=== PATIENT | female | born 1990 | race Caucasian/White ===

== ENCOUNTER 2020-08-10 14:54 | Inpatient (IN) | payer BC ==
[2020-08-10] MEDS ORDERED: DINOPROSTONE 10 MG INSERT.ER VAGINAL ONE (15:15)
[2020-08-10] MEDS ORDERED: LACTATED RINGERS 1,000 ML IV SCH (15:15)
[2020-08-10 15:41] LABS: Appearance,Urine Cloudy (Clear); Bilirubin,Urine Negative (Negative); Blood,Urine Negative (Negative); Color,Urine Colorless; Glucose,Urine (UA) Negative (Negative); Ketones,Urine Negative (Negative); Leukocyte Esterase,Urine Small (Negative); Nitrite,Urine Negative (Negative); PH, Urine 6.5 (5.0-8.0); Protein,Urine Negative (Negative); RBC,Urine <1 /hpf (0-5); Specific Gravity,Urine 1.003 (1.001-1.035); Squamous Epithelial Cell,Urine 1 /hpf (0-4); Urobilinogen,Urine <2.0 mg/dL (<2.0); WBC,Urine 2 /hpf (0-5)
[2020-08-10 15:44] LABS: Creatinine,Urine Random 25.5 mg/dL; Creatinine,Urine Random 25.7 mg/dL; Protein/Creatinine Ratio,Urine 1.098
[2020-08-10 15:52] LABS: Basophils # (A) 0.1 k/uL (0-0.2); Basophils % (A) 1 %; Eosinophils % (A) 0 %; HCT 35.4 % (34.0-46.0); HGB 12.4 gm/dL (11.4-16.0); Lymphocytes # (A) 1.5 k/uL (1.0-4.8); Lymphocytes % (A) 18 %; MCH 29.8 pg (25.0-35.0); MCV 85.1 fL (80.0-100.0); Mean Platelet Volume 7.4; Monocytes # (A) 0.5 k/uL (0-1.0); Monocytes % (A) 6 %; Neutrophils # (A) 6.1 k/uL (1.3-7.7); Neutrophils % (A) 74 %; Platelet Count 238 k/uL (150-450); RBC 4.15 m/uL (3.80-5.40); RDW 15.6 % (11.5-15.5); WBC 8.3 k/uL (3.8-10.6)
[2020-08-10 16:50] LABS: ALT 12 U/L (4-34); AST 18 U/L (14-36); African American GFR (CKD) >90 (>60 ml/min/1.73 sqM); Blood Urea Nitrogen 6 mg/dL (7-17); LDH 327 U/L (313-618); Non-African American GFR(CKD) >90 (>60 ml/min/1.73 sqM); Uric Acid 5.8 mg/dL (3.7-7.4)
[2020-08-10] MEDS ORDERED: hydrALAZINE HCL 20 MG/ML 1 ML VIAL IVP STA (18:25)
[2020-08-10] MEDS: LABETALOL 100 MG TAB PO SCH (20:53)
[2020-08-10] MEDS: BUTORPHANOL 1 MG/ML 1 ML VIAL IV PRN (23:46)
[2020-08-11] MEDS: BUTORPHANOL 1 MG/ML 1 ML VIAL IV PRN (03:49)
[2020-08-11] MEDS ORDERED: TERBUTALINE 1 MG/ML VIAL SQ PRN (05:19)
[2020-08-11] MEDS ORDERED: OXYTOCIN 10 UNIT/ML 1 ML VIAL IM PRN (05:19)
[2020-08-11] MEDS ORDERED: AMPICILLIN 2,000 MG in SODIUM CHLORIDE 0.9% 100 ML IVPB STA (05:19)
[2020-08-11] MEDS ORDERED: METHYLERGONOVINE 0.2 MG/ML 1 ML AMP IM PRN (05:19)
[2020-08-11] MEDS ORDERED: LIDOCAINE 0.5% (PF) 5 MG/ML (50 ML SDV) SQ PRN (05:19)
[2020-08-11] MEDS ORDERED: CARBOPROST TROMETHAMINE 250 MCG/ML 1 ML AMP IM PRN (05:19)
[2020-08-11] MEDS: OXYTOCIN 30 UNITS/500 ML NS 30 UNIT in SALINE 1 500ML.BAG IV SCH (05:43)
[2020-08-11] MEDS: LABETALOL 100 MG TAB PO SCH ×2 (08:22→20:20)
[2020-08-11] MEDS: LACTATED RINGERS 1,000 ML IV SCH ×3 (08:22→19:24)
[2020-08-11] MEDS ORDERED: fentaNYL (PF) 50 MCG/ML 5 ML AMP ONE (09:40)
[2020-08-11] MEDS ORDERED: SODIUM CHLORIDE 0.9% 100 ML BAG ONE (09:40)
[2020-08-11] MEDS ORDERED: ROPIVACAINE 5MG/ML 20ML VIAL ONE (09:40)
[2020-08-11] MEDS: AMPICILLIN 1,000 MG in SODIUM CHLORIDE 0.9% 50 ML IVPB SCH ×3 (09:49→19:24)
[2020-08-11] MEDS ORDERED: ROPIVACAINE 100 MG, fentaNYL (PF) 200 MCG in SODIUM CHLORIDE 0.9% 76 ML EPIDURAL ONE (09:58)
[2020-08-11] MEDS ORDERED: CITRIC ACID-SODIUM CITRATE 15 ML CUP PO ONE (16:12)
[2020-08-11] MEDS ORDERED: ceFAZolin 3 GM in SODIUM CHLORIDE 0.9% 100 ML IVPB ONE (16:12)
[2020-08-11] MEDS ORDERED: MORPHINE SULFATE (PF) 0.3 MG/0.3 ML SYR ONE (16:20)
[2020-08-11] MEDS ORDERED: fentaNYL (PF) 50 MCG/ML 2 ML AMP ONE (16:20)
[2020-08-11] MEDS ORDERED: CARBOPROST TROMETHAMINE 250 MCG/ML 1 ML AMP IM ONE (16:20)
[2020-08-11] MEDS ORDERED: OXYTOCIN 10 UNIT/ML 1 ML VIAL ONE (16:20)
[2020-08-11] MEDS ORDERED: ACETAMINOPHEN TAB 325 MG TAB PO PRN (17:31)
[2020-08-11] MEDS ORDERED: ZOLPIDEM 5 MG TAB PO PRN (17:31)
[2020-08-11] MEDS ORDERED: SIMETHICONE 80 MG CHEWABLE PO PRN (17:31)
[2020-08-11] MEDS ORDERED: METOCLOPRAMIDE 5 MG/ML 2 ML VIAL IVP PRN (17:31)
[2020-08-11] MEDS ORDERED: HYDROcodone/APAP 5-325MG 1 EACH TAB PO PRN (17:31)
[2020-08-11] MEDS ORDERED: diphenhydrAMINE 50 MG CAP PO PRN (17:31)
[2020-08-11] MEDS ORDERED: diphenhydrAMINE 50 MG/ML 1 ML VIAL IVP PRN ×2 (17:31)
[2020-08-11] MEDS ORDERED: diphenhydrAMINE 25 MG CAP PO PRN (17:31)
[2020-08-11] MEDS ORDERED: NALOXONE 0.4 MG/ML 1 ML VIAL IV PRN (17:31)
[2020-08-11] MEDS ORDERED: ONDANSETRON 4 MG/2 ML VIAL IVP PRN (17:31)
--- NOTE | 2020-08-11 17:35 | P.HPOB ---
History of Present Illness H&P Date: 08/10/20 Chief Complaint: IUP at 38 and 1/sevenths weeks, gestational hypertension this is a 30-year-old at 38 and one sevenths weeks that presents to labor and delivery from the office with noted elevated pressures. Patient had noted blood pressures 144/98 recheck being similar. Patient was sent to OB triage for evaluation. Blood pressures remained elevated. Patient denies headache or abdominal pain. Patient has been receiving routine care which has been essentially uncomplicated. Patient does note good movement and denies loss of fluid or vaginal bl eeding. On bloodwork patient has a blood type of AB+, rubella immune, hepatitis B surface antigen negative, HIV negative, RPR nonreactive, GBS positive. Review of Systems Constitutional: Denies chills, Denies fatigue, Denies fever Ears, nose, mouth and throat: Denies headache Cardiovascular: Reports leg edema Respiratory: Denies dyspnea Gastrointestinal: Denies constipation, Denies diarrhea, Denies nausea, Denies vomiting Genitourinary: Reports Past Medical History Past Medical History: No Reported History History of Any Multi-Drug Resistant Organisms: None Reported Past Surgical History: No Surgical Hx Reported Past Anesthesia/Blood Transfusion Reactions: No Reported Reaction Past Psychological History: Anxiety Smoking Status: Former smoker Past Alcohol Use History: None Reported Past Drug Use History: None Reported - Past Family History Father Additional Family Medical History / Comment(s): bipass surgery Medications and Allergies Home Medications Medication Instructions Recorded Confirmed Type Pnv No.95/Ferrous Fum/Folic AC 1 each PO DAILY 08/10/20 08/10/20 History [ Multivitamin Tablet] metFORMIN HCL [metFORMIN HCL ER] 750 mg PO DAILY 08/10/20 08/10/20 History Allergies Allergy/AdvReac Type Severity Reaction Status Date / Time No Known Allergies Allergy Verified 08/10/20 15:15 Exam Osteopathic Statement: *. No significant issues noted on an osteopathic structural exam other than those noted in the History and Physical/Consult. 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 Results Result Diagrams: 08/10/20 15:43 08/10/20 15:43 Abnormal Lab Results - Last 24 Hours (Table) 08/10/20 08/10/20 08/10/20 Range/Units 15:33 15:33 15:43 RDW 15.6 H (11.5-15.5) % BUN (7-17) mg/dL Creatinine (0.52-1.04) mg/dL Urine Appearance Cloudy H (Clear) Ur Leukocyte Esterase Small H (Negative) U Random Total Protein 29 H (<12) mg/dL 08/10/20 Range/Units 15:43 RDW (11.5-15.5) % BUN 6 L (7-17) mg/dL Creatinine 0.47 L (0.52-1.04) mg/dL Urine Appearance (Clear) Ur Leukocyte Esterase (Negative) U Random Total Protein (<12) mg/dL Assessment and Plan (1) 38 weeks gestation of Current Visit: Yes Status: Acute Code(s): Z3A.38 - 38 WEEKS GESTATION OF SNOMED Code(s): 63043344 (2) Gestational HTN Current Visit: Yes Status: Acute Code(s): O13.9 - GESTATIONAL HTN W/O SIGNIFICANT PROTEINURIA, UNSP TRIMESTER SNOMED Code(s): 099330902 (3) GBS bacteriuria Current Visit: Yes Status: Acute Code(s): R82.71 - BACTERIURIA SNOMED Code(s): 59373735 Plan: this 30-year-old at 38 and one sevenths weeks with diagnosis of gestational hypertension. Patient is admitted to labor and delivery for Cervidil induction of labor. Patient is offered Stadol and epidural if appropriate. Patient states understanding we'll monitor blood pressures and preeclampsia labs.
--- NOTE | 2020-08-11 17:43 | P.OP ---
Date of Procedure: 08/11/20 Preoperative Diagnosis: IUP at 38 and 1/sevenths weeks, preeclampsia, arrest of descent Postoperative Diagnosis: Same plus occiput posterior presentation Procedure(s) Performed: Primary low transverse section Anesthesia: epidural Surgeon: Rubina To Compressor Station Engineer Chief #1: Claudia Hollingsworth Estimated Blood Loss (ml): 700 IV fluids (ml): 1,000 Urine output (ml): 200 (Concentrated/blood-tinged) Pathology: other (Placenta) Condition: stable Disposition: observation Indications for Procedure: This 30-year-old 1 para 0 at 38 and one sevenths weeks presented to labor and delivery for Cervidil induction of labor for persistently elevated blood pressures. Patient was begun on labetalol 100 mg twice daily secondary to these blood pressures. Patient made good progress the evening, Pitocin was begu n and amniotomy was performed. Patient became uncomfortable requesting epidural, soon afterwards patient was noted to be complete and began pushing. Patient had been pushing about 2 hours with no further descent of the head and increasing It. head was noted to be +1 with It decision at that time was made for primary secondary to arrest of descent. Patient was counseled on the decision for she stated understanding and patient was taken back to the operative suite. Operative Findings: Viable female delivered at 1645, weight of 6 lbs. 11 oz. with Apgars of 7 and 9 at one and 5 minutes respectively. Patient was noted to be in persistent occiput posterior presentation at delivery, normal uterus tubes and ovaries were appreciated. Description of Procedure: Patient was taken back to the operating suite where epidural anesthesia was found be adequate. She was then prepped and draped in normal sterile fashion in the dorsal supine position. A Pfannenstiel skin incision was then made with the scalpel and carried through the underlying layer fascia. Fascia incised in midline and extended laterally. The superior aspect of the fascial incision was then grasped neville clamps, elevated and underlying rectus muscles dissected off sharply. Attention was then turned the inferior aspect of the fascial incision which was grasped neville clamps, elevated and underlying rectus muscles dissected off sharply. The rectus muscles were in the midline the peritoneum was identified and entered. The Maribeth ring retractor was then placed into the incision. The bladder blade was then inserted. Vesicouterine peritoneum was identified and the bladder flap was created using sharp and blunt dissection. Hysterotomy incision was then made with the scalpel clear fluid was obtained. The 's head was noted to be deep in the pelvis and with the assist of the RN pushing up for the infant was delivered in an occiput posterior presentation the umbo cord was doubly clamped and cut and the infant was handed off to awaiting RN. After stimulation a spontaneous cry was noted. The placenta was then delivered spontaneously intact with three-vessel cord being noted. The uterine incision was then closed with 0 Vicryl in a running locked fashion. A second layer of suture was used to obtain hemostasis. Bleeding was noted on the midportion of the uterus therefore 2 [id number] sutures were used to obtain hemostasis. The uterus was then delivered back to the abdomen and the ring retractor was removed. Hysterotomy incision was inspected a small amount of bleeding was noted therefore proceed was placed along the hysterotomy incision states was appreciated after placement. The gutters were cleared of all clots and debris. The peritoneum was loosely reapproximated and the fascia was then closed with 0 Vicryl in a running fashion from one lateral edge the midline and the other lateral edge the midline. The subcutaneous tissue was then irrigated and found to be hemostatic. 3-0 Vicryl was used to close the subcutaneous tissue in a running fashion. Skin was then closed with 4-0 Vicryl in a subcuticular fashion. Steri-Strips and sterile dressings were applied All counts were noted to be correct 2, patient and tolerated delivery well and are resting comfortably.
[2020-08-11] MEDS ORDERED: OXYTOCIN 20 UNITS/1000 ML NS 1,000 ML IV SCH (17:45)
[2020-08-11] MEDS ORDERED: ACETAMINOPHEN IV (For NPO) 1,000 MG in EMPTY BAG 1 BAG IVPB ONE (18:00)
[2020-08-11] MEDS ORDERED: IBUPROFEN IV 800 MG in SODIUM CHLORIDE 0.9% 250 ML IV ONE (18:30)
[2020-08-11] MEDS: SENNOSIDES-DOCUSATE SODIUM 1 EACH TAB PO SCH (20:20)
[2020-08-11 23:09] LABS: Anisocytosis Slight; Basophils % (A) 0 %; Eosinophils % (A) 0 %; HCT 32.4 % (34.0-46.0); HGB 11.1 gm/dL (11.4-16.0); Lymphocytes # (A) 1.5 k/uL (1.0-4.8); Lymphocytes % (A) 11 %; MCH 29.7 pg (25.0-35.0); MCHC 34.2 g/dL (31.0-37.0); Mean Platelet Volume 7.7; Monocytes # (A) 0.7 k/uL (0-1.0); Monocytes % (A) 5 %; Neutrophils # (A) 11.9 k/uL (1.3-7.7); Neutrophils % (A) 83 %; Platelet Count 243 k/uL (150-450); RBC 3.73 m/uL (3.80-5.40); WBC 14.5 k/uL (3.8-10.6)
[2020-08-12] MEDS: LACTATED RINGERS 1,000 ML IV SCH ×3 (04:03→20:17)
--- NOTE | 2020-08-12 07:39 | P.PNOBGPC ---
Subjective - Subjective Principal diagnosis: POD 1 LTCS, arrest of descent Interval history: Patient did well overnight. She is ambulating and voiding without difficulty. She states her pain is well-controlled. lochia is moderate, she is bottlefeeding. Blood pressures have been good overnight. Patient reports: Reports appetite normal, Reports voiding normally, Reports pain well controlled, Reports ambulating normally Thornton: doing well Objective - Vital Signs Latest vital signs: Vital Signs Temp Pulse Resp BP Pulse Ox 08/12/20 04:00 98.2 F 108 H 18 113/69 94 L 08/12/20 03:11 83 140/87 99 08/12/20 00:00 98.2 F 128 H 18 106/81 93 L 08/11/20 20:19 91 141/91 08/11/20 19:28 97.5 F L 110 H 16 138/84 97 08/11/20 18:58 97.1 F L 103 H 16 132/85 97 08/11/20 18:28 97.0 F L 103 H 16 139/76 98 08/11/20 18:13 97.0 F L 98 16 130/60 97 08/11/20 17:58 96.8 F L 106 H 16 128/56 96 08/11/20 17:43 96.9 F L 103 H 16 134/78 95 08/11/20 17:28 96.9 F L 107 H 15 122/72 95 Intake and Output 08/11/20 08/12/20 08/12/20 22:59 06:59 14:59 Output Total 500 575 Balance -500 -575 Output: Urine 500 575 Uretheral (Fitzgerald) 250 - Exam Extremities: Present: normal Abdomen: Present: normal appearance, soft Incision: Present: normal, dry, intact - Labs Labs: Abnormal Lab Results - Last 24 Hours (Table) 08/11/20 Range/Units 22:58 WBC 14.5 H (3.8-10.6) k/uL RBC 3.73 L (3.80-5.40) m/uL Hgb 11.1 L (11.4-16.0) gm/dL Hct 32.4 L (34.0-46.0) % RDW 16.0 H (11.5-15.5) % Neutrophils # 11.9 H (1.3-7.7) k/uL Assessment and Plan (1) 38 weeks gestation of Current Visit: Yes Status: Acute Code(s): Z3A.38 - 38 WEEKS GESTATION OF SNOMED Code(s): 52957793 (2) Gestational HTN Current Visit: Yes Status: Acute Code(s): O13.9 - GESTATIONAL HTN W/O SIGNIFICANT PROTEINURIA, UNSP TRIMESTER SNOMED Code(s): 750041428 (3) GBS bacteriuria Current Visit: Yes Status: Acute Code(s): R82.71 - BACTERIURIA SNOMED Code(s): 22278794 Plan: This 30-year-old G1 now P1 status post primary for arrest of descent. Patient is doing well. She is involuting and voiding without difficulty. States her pain is well-controlled. She is bottle feeding. She denies concerns currently. We'll monitor blood pressures closely and most likely need to start by mouth labetalol
[2020-08-12] MEDS: SENNOSIDES-DOCUSATE SODIUM 1 EACH TAB PO SCH ×2 (08:38→20:22)
[2020-08-12] MEDS: LABETALOL 100 MG TAB PO SCH ×2 (08:38→20:24)
[2020-08-12] MEDS: IBUPROFEN 600 MG TAB PO PRN ×3 (08:39→23:47)
--- NOTE | 2020-08-12 08:54 | P.PN ---
Progress Note - Text Progress Note Date: 08/12/20 (711) Anesthesia Postop day [1] Subjective: Status Post [section] with Duramorph. Patient seen and examined. [Doing well without complaint]. VAS 2 out of 10. Known nausea vomiting or pruritus. [Afebrile]. [Gross lower extremity strength intact]. [Spinal site intact without induration]. Without apparent anesthetic complications. Objective: Vital signs reviewed Heart: [Regular Rate] Lungs: [Good chest excursion] Abdomen: [Appears nondistended] Assessment: Status post [] with Duramorph postop day 1 Plan: Continue current care with your medical management.
[2020-08-12] MEDS ORDERED: VIT A,C & E-LUTEIN-MINERALS 1 EACH TAB PO SCH (09:00)
[2020-08-12] MEDS: OXYTOCIN 30 UNITS/500 ML NS 30 UNIT in SALINE 1 500ML.BAG IV SCH (20:17)
[2020-08-12 20:26] VITALS: RESP 18
[2020-08-13] MEDS: AMPICILLIN 1,000 MG in SODIUM CHLORIDE 0.9% 50 ML IVPB SCH ×3 (04:29→04:32)
[2020-08-13] MEDS: LACTATED RINGERS 1,000 ML IV SCH (04:30)
--- NOTE | 2020-08-13 05:35 | P.DS ---
Providers Date of admission: 08/10/20 15:37 Expected date of discharge: 08/13/20 Attending physician: Rubina To Primary care physician: Stated None - Discharge Diagnosis(es) (1) 38 weeks gestation of Current Visit: Yes Status: Acute (2) Gestational HTN Current Visit: Yes Status: Acute (3) GBS bacteriuria Current Visit: Yes Status: Acute (4) S/P section Current Visit: Yes Status: Acute Hospital Course: This is a 30-year-old 1 para 0 at 38 and one sevenths weeks that presented to labor and delivery from the office for Cervidil induction secondary to elevated blood pressures. Patient was noted to be gestational hypertension. Patient was begun on labetalol 100 mg twice daily upon admission. Patient made good progress throughout the evening and Pitocin and amniotomy were performed in the morning. Patient became uncomfortable and requested epidural placement. Epidural was placed by the anesthesia department. Patient progressed to complete began pushing and after 2 hours had no further descent of the head with increasing. Patient was counseled on need for secondary to arrest of descent. Patient stated understanding and was taken back to the operating suite. was performed without difficulty for further details on the please see the operative report. Patient delivered a liveborn female at 1645, weight of 6 lbs. 11 oz. and Apgars of 79 at one and 5 minutes respect weight. Infant was noted to be in the occiput posterior presentation at delivery. Patient's course has been essentially uneventful. On this day #2 she is ambulating and voiding without difficulty she is tolerating a regular diet without nausea or vomiting. She is bottle feeding. She does desire discharge home. Patient Condition at Discharge: Good Plan - Discharge Summary New Discharge Prescriptions: No Action metFORMIN HCL [metFORMIN HCL ER] 750 mg PO DAILY Pnv No.95/Ferrous Fum/Folic AC [ Multivitamin Tablet] 1 each PO DAILY Discharge Medication List Pnv No.95/Ferrous Fum/Folic AC [ Multivitamin Tablet] 1 each PO DAILY 08/10/20 [History] metFORMIN HCL [metFORMIN HCL ER] 750 mg PO DAILY 08/10/20 [History] Follow up Appointment(s)/Referral(s): Rubina To DO [Doctor of Osteopathic Medicine] - 2 Weeks Patient Instructions/Handouts: (DC), (GEN) Activity/Diet/Wound Care/Special Instructions: No tub baths or intercourse until 6 weeks . Patient is to follow-up in 2 weeks for incision check. Preeclampsia precautions are reviewed with patient.
[2020-08-13] MEDS: SENNOSIDES-DOCUSATE SODIUM 1 EACH TAB PO SCH (08:00)
[2020-08-13] MEDS: LABETALOL 100 MG TAB PO SCH (09:03)
[2020-08-13] MEDS: IBUPROFEN 600 MG TAB PO PRN (09:03)
[2020-08-13 10:09] VITALS: BP 136/91; PULSE 103; TEMP 98.1
== END 2020-08-13 12:00 | disposition home or self-care (01) | DRG 788 ==
LOC: FBPOP 14:54 → 4FBP 15:37
PROVIDERS: ADMIT Obstetrics & Gynecology Obstetrics; ATTEND Obstetrics & Gynecology Obstetrics
PROC: 10907ZC Drainage of Amniotic Fluid, Therapeutic from Products of Conception, Via Natural or Artificial Opening (ICD-10-PCS; 2020-08-11)
PROC: 3E0P7VZ Introduction of Hormone into Female Reproductive, Via Natural or Artificial Opening (ICD-10-PCS; 2020-08-11)
PROC: 3E0R3BZ Introduction of Anesthetic Agent into Spinal Canal, Percutaneous Approach (ICD-10-PCS; 2020-08-11)
PROC: 10D00Z1 Extraction of Products of Conception, Low, Open Approach (ICD-10-PCS; principal; 2020-08-11 17:09)
DX: O14.94 Unspecified pre-eclampsia, complicating childbirth (principal); Z3A.38 38 weeks gestation of pregnancy; Z37.0 Single live birth; O62.1 Secondary uterine inertia; F41.9 Anxiety disorder, unspecified; O99.344 Other mental disorders complicating childbirth; O99.824 Streptococcus B carrier state complicating childbirth; Z87.891 Personal history of nicotine dependence
CPT/HCPCS: 59025; 81001; 82565; 82570; 83615; 84156; 84450; 84460; 84520; 84550; 85025; 86850; 86900; 86901; 99215